=== PATIENT | female | born 1950 | race Caucasian/White ===

== ENCOUNTER 2024-02-07 06:08 | Day surgery (SDC) | payer MEDICARE, OTHER, SELFPAY ==
--- NOTE | 2024-01-04 10:01 | CM ---
Addendum entered by Melita Reynaga 01/23/24 10:45:
Spoke again with patient. She has obtained a raised toilet seat and grabber.
Original Note:
Patient is scheduled for an elective R THR on 02/07/24- she is a same day patient. Spoke with patient prior to surgery. Introduced role of Orthopedic Navigator. Patient reports that she lives with her in a two story home. There are three
steps to enter and patient has a first floor set up. She currently functions independently. She occasionally uses a cane. She also has a rolling walker and long handled shoe horn. She had VN services after her prior THR done at another facility two
years ago. PCP is Sudheer Mckeon.
Discussed orthopedic program and post surgical plans. Reviewed that she will have VN services initially (medicare.gov website and ratings reviewed) and will then start outpatient PT. Patient selects [facility]N (face sheet faxed to [facility] to facilitate
confirmation of benefits) for her home care needs and is unsure where she will go for outpatient PT.
Patient is in agreement with plan and states that her will be home with her.
Patient will complete online education.
Plan: Orthopedic Navigator will remain available to assist with the care of patient and will reassess discharge needs after surgery.
[2024-01-18 09:13] VITALS: BMI 25.5
[2024-01-18 10:05] LABS: Hemoglobin 12.6 g/dL (12.0-16.0); Mean Corp Hgb Conc. 33.2 g/dL (33.0-37.0); Mean Corpuscular Volume 90.5 fL (81.0-99.0); Mean Platelet Volume 9.2 fL (7.4-10.4); Platelet Count 235 10^3/uL (130-400); Red Cell Dist. Width 12.5 % (11.5-14.5); White Blood Cell Count 4.3 10^3/uL (4.8-10.8)
[2024-01-18 10:22] LABS: ALT (SGPT) 29 U/L (0-35); AST (SGOT) 31 U/L (14-36); Alkaline Phosphatase 60 U/L (38-126); Blood Urea Nitrogen 18 mg/dl (7-17); Calcium 9.5 mg/dl (8.4-10.2); Carbon Dioxide 31 mmol/L (22-30); Chloride 102 mmol/L (98-107); Estimated Creatinine Clearance 67 ml/min; Glucose 82 mg/dl (70-99); Potassium 3.6 mmol/L (3.5-5.1); Sodium 136 mmol/L (135-145); Total Bilirubin 0.8 mg/dl (0.2-1.3); Total Protein 6.7 g/dl (6.3-8.2); eGFR > 60.00
[2024-01-18 11:30] LABS: Glycohemoglobin (HgbA1c) 6.1 % (4.0-5.6)
[2024-01-18 14:12] VITALS: BMI 25.5
[2024-02-07] VITALS (12 sets, daily range): BP systolic 95–162; BP diastolic 59–100; PULSE 64; O2SAT 95; BMI 25.5
[2024-02-07] MEDS: NORMOSOL-R 1000 IV (06:23)
[2024-02-07] MEDS: CELEBREX 200 MG PO (06:23)
[2024-02-07] MEDS: TYLENOL 650 MG PO ×2 (06:23→10:17)
--- NOTE | 2024-02-07 11:03 | CM ---
Patient had planned R THR today. Met with patient at bedside to review discharge plans. Patient will be returning home today with services through [facility]. On Monday, 02/11, patient will start outpatient PT at [facility]. Reviewed MD follow up
in two weeks and patient is aware of need to schedule appointment.
Patient has her rolling walker here with her.
PT and VN were kept updated as to progress and discharge plans.
[2024-02-07] MEDS: ANCEF 5 IV (11:23)
== END 2024-02-07 12:20 | disposition home health service (06) ==
LOC: SDS 06:08
PROVIDERS: ATTENDING PHYSICIAN Orthopaedic Surgery; FAMILY PHYSICIAN Family Medicine; OTHER PHYSICIAN Internal Medicine; OTHER PHYSICIAN Physician Assistant Medical
DX: M16.11 Unilateral primary osteoarthritis, right hip (principal)
CPT/HCPCS: 27130; C1776; C1713; 36415; 73502; 80053; 83036; 85027; 87070; 93005; 97116; 97161

== ENCOUNTER 2024-02-23 15:26 | Outpatient (RCR) | payer MEDICARE, OTHER, SELFPAY | END 2024-02-23 23:59 | disposition home or self-care (01) | LOC: RPT 15:26 | PROVIDERS: ATTENDING PHYSICIAN Orthopaedic Surgery; FAMILY PHYSICIAN Family Medicine | DX: Z47.1 Aftercare following joint replacement surgery (principal); Z73.6 Limitation of activities due to disability; R26.2 Difficulty in walking, not elsewhere classified; M62.81 Muscle weakness (generalized); Z96.641 Presence of right artificial hip joint | CPT/HCPCS: 97110; 97116; 97140; 97163 ==

== ENCOUNTER 2024-03-06 15:02 | Emergency (ER) | payer MEDICARE, OTHER, SELFPAY ==
[2024-03-06 15:08] VITALS: BP 157/105; BMI 24.3
[2024-03-06 15:13] VITALS: BP 185/132
[2024-03-06 15:44] LABS: % Basophils 0.5 % (0-2); % Eosinophils 0.3 % (0-6); % Immature Granulocytes 0.4 % (0-0.5); % Lymphocytes 25.9 % (20.5-51.1); % Monocytes 9.6 % (1.7-9.3); % Neutrophils 63.3 % (42.2-75.2); Absolute Lymphocytes 2.1 10^3/uL (1.2-3.4); Absolute Monocytes 0.8 10^3/uL (0.1-0.6); Hematocrit 39.1 % (37.0-47.0); Hemoglobin 13.5 g/dL (12.0-16.0); Mean Corp Hgb Conc. 34.5 g/dL (33.0-37.0); Mean Corpuscular Hgb 30.5 pg (27.0-31.0); Mean Corpuscular Volume 88.3 fL (81.0-99.0); Mean Platelet Volume 8.7 fL (7.4-10.4); Nucleated Red Blood Cells % 0 %; Platelet Count 310 10^3/uL (130-400); Red Blood Cell Count 4.43 10^6/uL (4.20-5.40); Red Cell Dist. Width 14.2 % (11.5-14.5); White Blood Cell Count 7.9 10^3/uL (4.8-10.8)
[2024-03-06 16:01] LABS: ALT (SGPT) 26 U/L (0-35); AST (SGOT) 38 U/L (14-36); Albumin 4.8 g/dl (3.5-5.0); Alkaline Phosphatase 126 U/L (38-126); Blood Urea Nitrogen 17 mg/dl (7-17); Calcium 10.5 mg/dl (8.4-10.2); Carbon Dioxide 26 mmol/L (22-30); Chloride 98 mmol/L (98-107); Estimated Creatinine Clearance 81 ml/min; Glucose 90 mg/dl (70-99); Potassium 3.3 mmol/L (3.5-5.1); Sodium 134 mmol/L (135-145); Total Bilirubin 1.5 mg/dl (0.2-1.3); Total Protein 7.7 g/dl (6.3-8.2); eGFR > 60.00
[2024-03-06 16:09] LABS: Troponin I < 0.012 ng/ml
[2024-03-06 16:25] VITALS: BP 179/124
[2024-03-06 16:36] VITALS: BP 149/131
[2024-03-06] MEDS: NORVASC 5 MG PO (16:53)
--- NOTE | 2024-03-06 16:53 | ED.GENMED ---
History of Present Illness
<Teresa Manjarrez PA-C - Last Filed: 03/07/24 17:59>
General
Chief Complaint: Blood Pressure Problem
Source: patient
Exam Limitations: none
Time Seen by Provider: 03/06/24 16:19
Nursing documentation reviewed up to this point in time: agreed with
Travel History
Have you had any contact with someone who has COVID-19?: No
Do you have any symptoms of coronavirus? Fever > 100 degrees, chills, cough, shortness of breath, sore throat, loss of taste or smell, muscle aches, or headache?: No
History of Present Illness
History of Present Illness:
This is a 73-year-old female with a history of hypertension, hyperlipidemia, GERD, hypothyroidism who presents to the emergency department today with concerns of high blood pressure. Patient states that she will check her blood pressure from time
to time, but she decided to check it today because she felt 'off 'and also felt like she had a decreased appetite. Patient denies chest pain, shortness of breath, syncopal episodes, abdominal pain, nausea or vomiting, dysuria, back pain. Patient
denies any headache, any visual changes, decreased urinary output. Of note, patient takes a hydrochlorothiazide�olmesartan combo pill once daily. She does not take any beta james, is on no blood thinner. Patient states that her blood pressure
at home was 180 systolically and she went to report to emergency department for further evaluation. Patient unsure of what her blood pressure usually runs at, but she states that she thinks it is less than that systolically.
Past History
<Teresa Manjarrez PA-C - Last Filed: 03/07/24 17:59>
Past History
ED Past Medical History: HTN, Hypercholesterolemia and Hypothyroidism
ED Past Surgical History: Orthopedic
Social History
Tobacco: Non-smoker
Alcohol: None
Drug: None
Personal:
Living: with family
Employment: Employed
Family History
Family History: Other
Review of Systems
<Teresa Manjarrez PA-C - Last Filed: 03/07/24 17:59>
Review of Systems
All Other Systems: ROS reviewed and negative except as documented in HPI and ROS
Phy Exam
<Teresa Manjarrez PA-C - Last Filed: 03/07/24 17:59>
Physical Exam
Physical Exam:
General: Patient is well appearing and in no acute distress; non-toxic
Skin: Warm and dry, no rashes or lesions
Head: Normocephalic, atraumatic
Eyes: Sclera non-icteric. EOMs intact.
Cardiac: Regular rate and rhythm, no murmurs.
Peripheral Vascular: No lower extremity swelling erythema
Pulm: Normal respiratory effort, no wheezes, rales, rhonchi
Abdomen: No abdominal tenderness to palpation.
Neuro: CN II-XII intact, no focal neurologic deficits.
Psychiatric: Appropriate mood and affect.
<Milton Abbasi MD - Last Filed: 03/06/24 20:10>
Physical Exam
Physical Exam:
see PA documentation
Scores
<Teresa Manjarrez PA-C - Last Filed: 03/07/24 17:59>
NIH Stroke Score
Level of Consciousness: 0 - Alert
LOC Questions: 0-Answers both correctly
LOC Commands: 0-Performs both correctly
Best Horizontal Gaze: 0-Normal
Visual Laird: 0=Normal, no visual loss
Facial Palsy: 0=Normal, symmetrical
Motor - Right Arm: 0=No drift 10 seconds
Motor - Left Arm: 0=No drift 10 seconds
Motor - Right Le-No drift 5 seconds
Motor - Left Le-No drift 5 seconds
Limb Ataxia: 0-Absent
Sensation: 0-Normal
Best Language: 0-No aphasia
Dysarthria: 0-Normal
Extinction and Inattention: 0-No abnormality
Total Score:: 0
Course
<Teresa Manjarrez PA-C - Last Filed: 03/07/24 17:59>
Orders/Labs/Results
Orders:
Orders
03/06/24 15:10
Electrocardiogram (*1) Urgent
Reason for Study: Chest Pain
03/06/24 15:11
EKG- Treatment ONCE
03/06/24 15:25
Complete Blood Count/With Diff Urgent
Comprehensive Metabolic Panel Urgent
Troponin I Urgent
03/06/24 16:50
Amlodipine [Norvasc] 5 mg PO DAILY
03/06/24 20:00
Amlodipine [Norvasc] 5 mg PO BID
Abnormal Lab Results
03/06/24
15:25
Absolute Monos (auto) 0.8 H 10^3/uL
(0.1-0.6)
Monocytes % 9.6 H %
(1.7-9.3)
Sodium 134 L mmol/L
(135-145)
Potassium 3.3 L mmol/L
(3.5-5.1)
Calcium 10.5 H mg/dl
(8.4-10.2)
Total Bilirubin 1.5 H mg/dl
(0.2-1.3)
AST 38 H U/L
(14-36)
03/06/24 15:25
03/06/24 15:25
Vital Signs
Initial and Last Documented VS:
Initial Vital Signs
Temp Pulse Resp BP Pulse Ox
98 F 95 16 157/105 99
03/06/24 15:08 03/06/24 15:08 03/06/24 15:08 03/06/24 15:08 03/06/24 15:08
Last Documented Vital Signs
Temp Pulse Resp BP Pulse Ox
98 F 91 16 169/105 94
03/06/24 15:08 03/06/24 17:33 03/06/24 15:08 03/06/24 17:33 03/06/24 17:33
<Milton Abbasi MD - Last Filed: 03/06/24 20:10>
Orders/Labs/Results
Orders:
Orders
03/06/24 15:10
Electrocardiogram (*1) Urgent
Reason for Study: Chest Pain
03/06/24 15:11
EKG- Treatment ONCE
03/06/24 15:25
Complete Blood Count/With Diff Urgent
Comprehensive Metabolic Panel Urgent
Troponin I Urgent
03/06/24 16:50
Amlodipine [Norvasc] 5 mg PO DAILY
03/06/24 20:00
Amlodipine [Norvasc] 5 mg PO BID
Abnormal Lab Results
03/06/24
15:25
Absolute Monos (auto) 0.8 H 10^3/uL
(0.1-0.6)
Monocytes % 9.6 H %
(1.7-9.3)
Sodium 134 L mmol/L
(135-145)
Potassium 3.3 L mmol/L
(3.5-5.1)
Calcium 10.5 H mg/dl
(8.4-10.2)
Total Bilirubin 1.5 H mg/dl
(0.2-1.3)
AST 38 H U/L
(14-36)
03/06/24 15:25
03/06/24 15:25
Vital Signs
Initial and Last Documented VS:
Initial Vital Signs
Temp Pulse Resp BP Pulse Ox
98 F 95 16 157/105 99
03/06/24 15:08 03/06/24 15:08 03/06/24 15:08 03/06/24 15:08 03/06/24 15:08
Last Documented Vital Signs
Temp Pulse Resp BP Pulse Ox
98 F 91 16 169/105 94
03/06/24 15:08 03/06/24 17:33 03/06/24 15:08 03/06/24 17:33 03/06/24 17:33
<Milton Abbasi MD - Last Filed: 03/06/24 20:10>
*Critical Care Note
Total Time (30-74mins, 75-104mins- exclusive of procedures): Not Applicable
<Teresa Manjarrez PA-C - Last Filed: 03/07/24 17:59>
Patient Management
Escalation/DeEscalation of care consider admission/obs:
This is a 73-year-old female with a history of hypertension, hyperlipidemia, GERD, hypothyroidism who presents to the emergency department today with concerns of high blood pressure. Patient states that she checked it because she had a decreased
appetite. It was 180s systolically at home. Here in the emergency department, her blood pressure was elevated, with the highest reading being 185/132. Her EKG demonstrates normal sinus rhythm with no ischemic changes, her CBC is within normal
limits, her CMP shows no signs of endorgan dysfunction. On exam, she has regular rate and rhythm, no murmurs, and her neurologic exam is unremarkable.
Patient was given a dose of amlodipine and she was allowed to rest. After some time, her blood pressure came down to 169/105. This patient was also evaluated by my attending Dr. Frazier who agrees with plan. Considering patient's only symptom is
decreased appetite and she has no chest pain, no shortness of breath, no headache and no signs of endorgan damage, she is stable for discharge and the follow-up with her primary care provider. We did start her on an addition of amlodipine to her
blood pressure regimen, she will take 1 tablet once daily until she sees her primary. Patient stable for discharge. Please refer to attending note as well.
ED Attending Note
<Teresa Manjarrez PA-C - Last Filed: 03/07/24 17:59>
-
Portions of this chart may have been created with voice recognition software.� Occasional wrong word or��sound alike� substitutions may have occurred due to the inherent limitations of voice recognition software.
<Milton Abbasi MD - Last Filed: 03/06/24 20:10>
ED Attending Note
ED Attending Note:
I saw and evaluated patient independently. Patient has clear and fluent speech. Naming repetition and comprehension are intact. She has no neurologic deficits. She endorses severe anxiety associated with her hypertension. Denies any headache
chest pain shortness of breath. She was very well-appearing. Patient monitored in the emergency department. She has baseline blood work and EKG. Will add amlodipine low-dose to help with blood pressure control recommend she follow-up with her
primary care doctor for continued blood pressure manage
Discharge Plan
Departure
Patient Disposition: Home (Routine Discharge)
Date of Disposition: 03/06/24
Time of Disposition: 17:58
Patient with high blood pressure during this ER visit?: Yes
Condition: Good
Discharge Problem:
High blood pressure
Instructions: High Blood Pressure (DC), BLOOD PRESSURE
Prescriptions:
New
amlodipine 5 mg tablet
5 mg PO DAILY Qty: 20 0RF
No Action
Ambien:
5 mg PO HSPRN PRN (Reason: sleep)
Synthroid
137 mcg PO .5 DAYS A WEEK
atorvastatin 40 mg Tablet
40 mg PO QPM
fluoxetine 20 mg Tablet
20 mg PO BID
omeprazole 20 mg Tablet,Delayed Release (Dr/Ec)
20 mg PO DAILY
calcium carbonate [Calcium 600] 600 mg calcium (1,500 mg) Tablet
600 mg PO BID
budesonide 3 mg Capsule,Delayed,Extend.Release
3 mg PO DAILY
fluticasone propionate 50 mcg/actuation [place],Suspension
1 spray INTRANASAL DAILY
cholecalciferol (vitamin D3) [Vitamin D3] 25 mcg (1,000 unit) Tablet,Chewable
25 mcg PO DAILY
Glucosamine Chondroitin 550-30-1 mg Capsule
1 cap PO DAILY
Hold Instructions: Resume on 02/14/24.
mupirocin 2 % ointment
1 applic topical BID Qty: 1 0RF
Patient Comments:
started treatment on monday02/04/24 and completed BID, last took at home 02/07/24 in am
meloxicam 15 mg tablet
15 mg PO DAILY Qty: 14 0RF
Rx Instructions:
take with food
post-op
tramadol 50 mg tablet
50 - 100 mg PO Q6H PRN (Reason: 1 tab moderate, 2 tabs if pain severe) Qty: 30 0RF
Rx Instructions:
Dx Orthopedic surgery
Ongoing therapy
post-op
dexamethasone 4 mg tablet
4 mg PO BID Qty: 6 0RF
Rx Instructions:
take with food
post-op use only
gabapentin 300 mg capsule
300 mg PO HS Qty: 10 0RF
acetaminophen [Acetaminophen Extra Strength] 500 mg tablet
1,000 mg PO Q6H Qty: 60 0RF
Rx Instructions:
DO NOT exceed >4000 mg daily
aspirin 325 mg tablet
325 mg PO DAILY Qty: 30 0RF
Rx Instructions:
Take daily x4 weeks for blood clot prevention.
docusate sodium [Colace] 100 mg capsule
100 mg PO BID Qty: 30 0RF
sennosides [senna] 8.6 mg tablet
17.2 mg PO BID Qty: 30 0RF
olmesartan-hydrochlorothiazide 20-12.5 mg Tablet
1 tab PO DAILY Qty: 0 0RF
Rx Instructions:
HOLD IF systolic blood pressure <130 while on Tramadol
Simponi ARIA
1 dose IV .EVERY 8 WEEKS Qty: 0 0RF
Rx Instructions:
DO NOT RESUME POST-SURGERY UNTIL DISCUSSED WITH SURGEON AT FOLLOW-UP APPOINTMENT
Referrals:
Sudheer Mckeon MD [Family Provider] -
Activity Restrictions/Additional Instructions:
Please call your primary care provider to have your lab work rechecked and to be reevaluated. Please add the amlodipine to your blood pressure regimen: please take one 5 mg tablet once daily until you see your primary care provider.
PLEASE RETURN TO THE EMERGENCY DEPARTMENT SHOULD YOU EXPERIENCE INTRACTABLE VOMITING, CHEST PAIN, SHORTNESS OF BREATH, DIFFICULTY SPEAKING, CONFUSION, NUMBNESS OR TINGLING, MOTOR WEAKNESS, FACIAL DROOP, OR ANY OTHER SIGNS OR SYMPTOMS CONCERNING TO
YOU.
Interventions
Interventions:
*Risk Screen - Suicide Last Done: 03/06/24 15:08
*General Assessment Last Done: 03/06/24 16:21
*Neglect/Abuse Screening Last Done: 03/06/24 15:08
ED- Fall Risk Assessment Last Done: 03/06/24 15:08
*ED COVID-19 Vaccine History Last Done: 03/06/24 16:21
*Nursing Disposition Last Done: 03/06/24 18:05
ED- Cardiac Assessment Last Done: 03/06/24 16:21
ED- Neurological Assessment Last Done: 03/06/24 16:21
ED- Pulmonary Assessment Last Done: 03/06/24 16:21
Discharge Date and Time
Discharge Date/Time: 03/06/24 18:05
Print Language: THAI
[2024-03-06 17:00] VITALS: BP 174/126
[2024-03-06 17:33] VITALS: BP 169/105
== END 2024-03-06 18:05 | disposition home or self-care (01) ==
LOC: EMR 15:02
PROVIDERS: Emergency Medicine; EMERGENCY PHYSICIAN Emergency Medicine; FAMILY PHYSICIAN Family Medicine
DX: I10 Essential (primary) hypertension (principal); E78.00 Pure hypercholesterolemia, unspecified; K21.9 Gastro-esophageal reflux disease without esophagitis; E03.9 Hypothyroidism, unspecified
CPT/HCPCS: 99283; 80053; 84484; 85025; 93005

== ENCOUNTER 2024-03-29 12:44 | Outpatient (RCR) | payer MEDICARE, OTHER, SELFPAY | END 2024-03-29 23:59 | disposition home or self-care (01) | LOC: RPT 12:44 | PROVIDERS: ATTENDING PHYSICIAN Orthopaedic Surgery; FAMILY PHYSICIAN Family Medicine | DX: Z47.1 Aftercare following joint replacement surgery (principal); Z96.641 Presence of right artificial hip joint; R26.2 Difficulty in walking, not elsewhere classified; Z73.6 Limitation of activities due to disability | CPT/HCPCS: 97010; 97110; 97112; 97530 ==

== ENCOUNTER 2024-04-26 13:49 | Outpatient (RCR) | payer MEDICARE, OTHER, SELFPAY | END 2024-04-26 23:59 | disposition home or self-care (01) | LOC: RPT 13:49 | PROVIDERS: ATTENDING PHYSICIAN Orthopaedic Surgery; FAMILY PHYSICIAN Family Medicine | DX: Z96.641 Presence of right artificial hip joint (principal); Z47.1 Aftercare following joint replacement surgery | CPT/HCPCS: 97110; 97112; 97116 ==

== ENCOUNTER 2024-05-14 10:02 | Outpatient (RCR) | payer MEDICARE, OTHER, SELFPAY | END 2024-05-14 14:33 | disposition home or self-care (01) | LOC: RPT 10:02 | PROVIDERS: ATTENDING PHYSICIAN Orthopaedic Surgery; FAMILY PHYSICIAN Family Medicine | DX: Z47.1 Aftercare following joint replacement surgery (principal); Z73.6 Limitation of activities due to disability; M25.551 Pain in right hip; R26.89 Other abnormalities of gait and mobility; R26.2 Difficulty in walking, not elsewhere classified; M62.81 Muscle weakness (generalized); Z96.641 Presence of right artificial hip joint | CPT/HCPCS: 97110; 97112 ==

== ENCOUNTER → 2025-10-08 08:51 | Outpatient (REF) | payer MEDICARE, OTHER, SELFPAY | LOC: HWWDC 08:51 | PROVIDERS: ATTENDING PHYSICIAN Obstetrics & Gynecology Gynecology; FAMILY PHYSICIAN Family Medicine | DX: Z12.31 Encounter for screening mammogram for malignant neoplasm of breast (principal) | CPT/HCPCS: 77063; 77067 ==